=== PATIENT | male | born 1990 | race Caucasian/White ===

== ENCOUNTER 2017-07-29 08:48 | Emergency (ER) | payer BC ==
[~2017-07-29] VITALS: Ht 172.7 cm; Wt 85.7 kg
[2017-07-29 08:51] VITALS: BP 115/67; Ht 172.7 cm; Wt 85.7 kg
== END 2017-07-29 09:17 | disposition home or self-care (01) ==
LOC: ED 08:48
DX: J11.1 Influenza due to unidentified influenza virus with other respiratory manifestations (principal)